=== PATIENT | male | born 1980 | race Caucasian/White ===

== ENCOUNTER 2023-03-08 21:29 | Emergency (ER) | payer BC ==
[~2023-03-08] VITALS: Ht 182.9 cm; Wt 93.0 kg
[2023-03-08 21:50] VITALS: BP 131/85; TEMP 98
[2023-03-08] MEDS ORDERED: LIDOCAINE HCL/PF 1% 30 ML VIAL TP ONE (22:30)
[2023-03-08] MEDS ORDERED: LIDOCAINE HCL/MPF 1% 30 ML VIAL IJ ONE (22:38)
[2023-03-08 23:33] VITALS: O2SAT 98
[2023-03-08] MEDS ORDERED: SULF1TAB48 PO (23:41)
== END 2023-03-08 23:33 | disposition home or self-care (01) ==
LOC: ER 21:39
DX: S61.212A Laceration without foreign body of right middle finger without damage to nail, initial encounter (principal); F41.9 Anxiety disorder, unspecified; W22.8XXA Striking against or struck by other objects, initial encounter; Y93.89 Activity, other specified; Y92.89 Other specified places as the place of occurrence of the external cause; Y99.8 Other external cause status
CPT/HCPCS: 12001; 99282; J3490